=== PATIENT | male | born 1995 | race American Indian/Alaskan Native ===

== ENCOUNTER 2016-06-13 12:07 | Emergency (ER) | payer OTHER ==
[2016-06-13 12:09] VITALS: BMI 20.7
--- NOTE | 2016-06-13 12:12 | ED PDOC ---
Arrival/HPI - General Historian: Patient - General Time Seen by Provider: 06/13/16 12:12 - History of Present Illness Narrative History of Present Illness (Text): 06/13/16 12:12 20 y/o male, no pmh, nkda, c/o penile discharge with burning urinary sensation x 2 days. Pt. stated that he has couple sexual partners this year which he doesn't use condoms, penile discharge with white color, burning on urination, no testicular pain, no fever or chills, no headache or night sweat, no rash, no weight loss, no fatigue or change in energy level, no numbness or tingling, no other medical or psychological complaints. (Christopher Olvera) Past Medical History - Provider Review Nursing Documentation Reviewed: Yes Family/Social History - Physician Review Nursing Documentation Reviewed: Yes Family/Social History: Unknown Family HX Allergies/Home Meds Allergies/Adverse Reactions: Allergies shellfish derived Allergy (Verified 06/13/16 12:09) SWELLING Review of Systems - Review of Systems Constitutional: absent: Fatigue, Fevers Eyes: absent: Vision Changes ENT: absent: Hearing Changes Respiratory: absent: SOB, Cough, Sputum Cardiovascular: absent: Chest Pain Gastrointestinal: absent: Abdominal Pain, Diarrhea, Nausea, Vomiting Genitourinary Male: Dysuria, Other (+penile discharge). absent: Frequency, Hematuria, Urinary Output Changes Musculoskeletal: absent: Arthralgias, Back Pain, Neck Pain, Joint Swelling, Myalgias Skin: absent: Rash, Pruritis, Skin Lesions, Laceration Hemo/Lymphatic: absent: Adenopathy Physical Exam Vital Signs Reviewed: Yes Temperature: Afebrile Pulse: Regular Respiratory Rate: Normal Appearance: Positive for: Well-Appearing, Non-Toxic, Comfortable Pain Distress: Mild Mental Status: Positive for: Alert and Oriented X 3 - Systems Exam Head: Present: Atraumatic, Normocephalic Pupils: Present: PERRL Extroacular Muscles: Present: EOMI Conjunctiva: Present: Normal Mouth: Present: Moist Mucous Membranes Neck: Present: Normal Range of Motion Respiratory/Chest: Present: Clear to Auscultation, Good Air Exchange. No: Respiratory Distress, Accessory Muscle Use Cardiovascular: Present: Regular Rate and Rhythm, Normal S1, S2. No: Murmurs Abdomen: Present: Normal Bowel Sounds. No: Tenderness, Distention, Peritoneal Signs Genitourinary Male: Present: Normal External Genitalia. No: Lesions, Penile Discharge, Testicle Tenderness, Penile Swelling, Masses, Testicle Swelling Back: Present: Normal Inspection Upper Extremity: Present: Normal Inspection. No: Cyanosis, Edema Lower Extremity: Present: Normal Inspection. No: Edema Neurological: Present: GCS=15, CN II-XII Intact, Speech Normal Skin: Present: Warm, Dry, Normal Color. No: Rashes Psychiatric: Present: Alert, Oriented x 3, Normal Insight, Normal Concentration Vital Signs Temp Pulse Resp BP Pulse Ox 06/13/16 12:12 98.8 F 78 18 114/57 L 98 Medical Decision Making ED Course and Treatment: I was available for consultation during PA evaluation. The chart was reviewed by me, and I agree with disposition. The documented history was done by the physician licensed plumber. The documented physical exam was done by the physician licensed plumber. The documented procedures were done by the physician licensed plumber. (Davonte Heredia) 06/13/16 12:43 -UA show +UTI -gc/chlamydia ordered, refused HIV test. -Rocephine and azithromycin ordered. -Discharge home with macrobid, pyridium, stay hydrated, wear condom in the future, notify all your sexual partners for the STD testing and prophylatic treatment, follow up with your own pmd within 2 days, return to the ER for any new or worsening signs or symptoms. (Christopher Olvera) - Lab Interpretations Lab Results: Lab Results 06/13/16 12:15: Urine Color Yellow, Urine Appearance Clear, Urine pH 7.5, Ur Specific [place] 1.020, Urine Protein Negative, Urine Glucose (UA) Negative, Urine Ketones Negative, Urine Blood Negative, Urine Nitrate Negative, Urine Bilirubin Negative, Urine Urobilinogen 0.2, Ur Leukocyte Esterase Small H, Urine RBC Pending, Urine WBC Pending - PA / [employer] / Resident Statement MD/DO has reviewed & agrees with the documentation as recorded. Disposition/Present on Arrival - Present on Arrival Any Indicators Present on Arrival: No History of DVT/PE: No History of Uncontrolled Diabetes: No Urinary Catheter: No History of Decub. Ulcer: No - Disposition Have Diagnosis and Disposition been Completed?: Yes Disposition Time: 12:47 Patient Plan: Discharge - Disposition Diagnosis: UTI (urinary tract infection), Penile discharge, Possible exposure to STD Disposition: HOME/ ROUTINE Condition: GOOD Additional Instructions: Discharge home with macrobid, pyridium, stay hydrated, wear condom in the future , notify all your sexual partners for the STD testing and prophylatic treatment , follow up with your own pmd within 2 days, return to the ER for any new or worsening signs or symptoms. Prescriptions: Nitrofurantoin Macrocrystals [Macrobid] 100 mg PO BID #14 cap Phenazopyridine [Phenazopyridine HCl] 200 mg PO TID #6 tab Referrals: [facility] [place], [place] [Outside] - Follow up with primary Forms: WORK NOTE, SCHOOL NOTE
[2016-06-13 12:13] VITALS: BP 114/57; PULSE 78; RESP 18; TEMP 98.8; O2SAT 98
[2016-06-13 12:36] LABS: PH,URINE 7.5 (4.7-8.0); URINE BILIRUBIN NEGATIVE (NEGATIVE); URINE BLOOD NEGATIVE (NEGATIVE); URINE GLUCOSE (UA) NEGATIVE (NEGATIVE); URINE KETONE NEGATIVE (NEGATIVE); URINE LEUKOCYTE ESTERASE SMALL Leu/uL (NEGATIVE); URINE PROTEIN NEGATIVE mg/dL (<30 mg/dL); URINE UROBILINOGEN 0.2 E.U./dL (<1 E.U./dL)
[2016-06-13 12:37] LABS: URINE APPEARANCE CLEAR (CLEAR); URINE COLOR YELLOW (YELLOW)
[2016-06-13] MEDS ORDERED: cefTRIAXone (Rocephin) 250 mg Inj IM STA (12:40)
[2016-06-13 12:50] LABS: URINE AMORPHOUS SEDIMENT FEW; URINE BACTERIA MOD (NEG); URINE EPITHELIAL CELLS 0 - 2 /hpf (0-5); URINE RBC 0 - 2 /hpf (0-2)
== END 2016-06-13 12:57 | disposition home or self-care (01) ==
LOC: ED 12:07
DX: N39.0 Urinary tract infection, site not specified (principal); R36.9 Urethral discharge, unspecified
CPT/HCPCS: 81001; 87086; 87491; 87591; 96372; 99284; J0696

== ENCOUNTER 2017-06-30 13:57 | Emergency (ER) | payer OTHER ==
[2017-06-30 13:57] VITALS: BMI 20.7
[2017-06-30 14:10] VITALS: TEMP 98.9
--- NOTE | 2017-06-30 14:30 | ED PDOC ---
Arrival/HPI - General Chief Complaint: Male Genitourinary Time Seen by Provider: 06/30/17 14:02 Historian: Patient - History of Present Illness Narrative History of Present Illness (Text): 06/30/17 14:27 22 y/o male, pmh including gonorrhea/chlamydia, nkda, c/o penile discharge with burning urination started yesterday. Pt. stated that he has been cheating on his girlfriend with another female, occasionally uses condomn and occasionally not, no fever or chills, no night sweat, no palpitation, no numbness or tingling , no other medical or psychological complaints. Past Medical History - Provider Review Nursing Documentation Reviewed: Yes - Infectious Disease Hx of Infectious Diseases: None - Psychiatric Hx Substance Use: Yes - Anesthesia Hx Anesthesia: No Family/Social History - Physician Review Nursing Documentation Reviewed: Yes Family/Social History: Unknown Family HX Smoking Status: Light Smoker < 10 Cigarettes Daily Hx Alcohol Use: No Hx Substance Use: Yes Substance used: marijuana Allergies/Home Meds Allergies/Adverse Reactions: Allergies shellfish derived Allergy (Verified 06/13/16 12:09) SWELLING Review of Systems - Review of Systems Constitutional: absent: Fatigue, Fevers Eyes: absent: Vision Changes ENT: absent: Hearing Changes Respiratory: absent: SOB, Cough Cardiovascular: absent: Chest Pain Gastrointestinal: absent: Abdominal Pain, Nausea, Vomiting Genitourinary Male: Dysuria, Other (+penile discharge). absent: Frequency, Hematuria, Urinary Output Changes Skin: absent: Rash, Pruritis Neurological: absent: Headache Psychiatric: absent: Anxiety, Depression, Suicidal Ideation Physical Exam Vital Signs Reviewed: Yes Vital Signs Temp Pulse Resp BP Pulse Ox 06/30/17 14:07 98.9 F 86 16 122/78 99 Temperature: Afebrile Blood Pressure: Normal Pulse: Regular Respiratory Rate: Normal Appearance: Positive for: Well-Appearing, Non-Toxic, Comfortable Pain Distress: None Mental Status: Positive for: Alert and Oriented X 3 - Systems Exam Head: Present: Atraumatic, Normocephalic Pupils: Present: PERRL Extroacular Muscles: Present: EOMI Conjunctiva: Present: Normal Mouth: Present: Moist Mucous Membranes Neck: Present: Normal Range of Motion Respiratory/Chest: Present: Clear to Auscultation, Good Air Exchange. No: Respiratory Distress, Accessory Muscle Use Cardiovascular: Present: Regular Rate and Rhythm, Normal S1, S2. No: Murmurs Abdomen: No: Tenderness, Distention, Peritoneal Signs Genitourinary Male: Present: Normal External Genitalia, Penile Discharge, Other. No: Circumcised Penis, Lesions, Testicle Tenderness, Penile Swelling, Masses, Testicle Swelling Back: Present: Normal Inspection Upper Extremity: Present: Normal Inspection. No: Cyanosis, Edema Lower Extremity: Present: Normal Inspection. No: Edema Neurological: Present: GCS=15, CN II-XII Intact, Speech Normal Skin: Present: Warm, Dry, Normal Color. No: Rashes Psychiatric: Present: Alert, Oriented x 3, Normal Insight, Normal Concentration Medical Decision Making ED Course and Treatment: 06/30/17 14:30 -UA -Pt. refused STD and HIV testings, request to be treated for gonorrhea/chlamydia 06/30/17 15:25 -UA show UTI -Rocephine and azithromycin ordered. -Discharge home with macrobid, stay hydrated, use condom in the future and notify all your sexual partners for the STD testing and prophylatic treatment, return to the ER for any new or worsening signs or symptoms. - Lab Interpretations Lab Results: Lab Results 06/30/17 14:34: Urine Color Yellow, Urine Appearance Clear, Urine pH 7.5, Ur Specific [place] 1.015, Urine Protein Negative, Urine Glucose (UA) Negative, Urine Ketones Negative, Urine Blood Negative, Urine Nitrate Negative, Urine Bilirubin Negative, Urine Urobilinogen 0.2, Ur Leukocyte Esterase Small H, Urine RBC Pending, Urine WBC Pending - PA / [employer] / Resident Statement MD/DO has reviewed & agrees with the documentation as recorded. Disposition/Present on Arrival - Present on Arrival Any Indicators Present on Arrival: No History of DVT/PE: No History of Uncontrolled Diabetes: No Urinary Catheter: No History of Decub. Ulcer: No History Surgical Site Infection Following: None - Disposition Have Diagnosis and Disposition been Completed?: Yes Diagnosis: Penile discharge, UTI (urinary tract infection) Disposition: HOME/ ROUTINE Disposition Time: 14:30 Patient Plan: Discharge Condition: GOOD Additional Instructions: -Discharge home with macrobid, stay hydrated, use condom in the future and notify all your sexual partners for the STD testing and prophylatic treatment, return to the ER for any new or worsening signs or symptoms. Prescriptions: Nitrofurantoin Macrocrystals [Macrobid] 100 mg PO BID #14 cap Referrals: Ke Luna MD [Staff Provider] - Follow up with primary Forms: WORK NOTE
[2017-06-30 15:09] LABS: PH,URINE 7.5 (4.7-8.0); URINE BILIRUBIN NEGATIVE (NEGATIVE); URINE BLOOD NEGATIVE (NEGATIVE); URINE GLUCOSE (UA) NEGATIVE (NEGATIVE); URINE LEUKOCYTE ESTERASE SMALL Leu/uL (NEGATIVE); URINE PROTEIN NEGATIVE mg/dL (<30 mg/dL); URINE UROBILINOGEN 0.2 E.U./dL (<1 E.U./dL)
[2017-06-30 15:10] LABS: URINE APPEARANCE CLEAR (CLEAR); URINE COLOR YELLOW (YELLOW)
[2017-06-30] MEDS ORDERED: cefTRIAXone (Rocephin) 250 mg Inj IM STA (15:22)
[2017-06-30 15:29] LABS: URINE BACTERIA FEW (NEG); URINE EPITHELIAL CELLS 0 - 2 /hpf (0-5); URINE RBC NEGATIVE /hpf (0-2); URINE WBC TNTC /hpf (0-6)
[2017-06-30 15:38] VITALS: BP 118/71; RESP 18
[2017-06-30 16:23] VITALS: PULSE 78; O2SAT 98
== END 2017-06-30 16:00 | disposition home or self-care (01) ==
LOC: ED 13:57
DX: R36.9 Urethral discharge, unspecified (principal); N39.0 Urinary tract infection, site not specified
CPT/HCPCS: 81001; 87086; 96372; 99283; J0696